=== PATIENT | female | born 1965 | race Caucasian/White ===

== ENCOUNTER → 2017-09-11 11:16 | Outpatient (CLI) | payer MEDICAID, SELFPAY ==
[2017-09-11 13:08] LABS: Hemoglobin A1C 5.7 % (4.5-6.2)
[2017-09-11 13:09] LABS: HCT 32.5 % (36.0-46.0); HGB 10.1 g/dL (12.0-15.5); Mean Corp. HGB Concentration 31.1 g/dL (32.0-36.0); Mean Corpuscular Hemoglobin 25.3 pg (27.0-33.0); Mean Corpuscular Volume 81.5 fL (80-95); Mean Platelet Volume 12.6 fL (8.0-11.0); Platelet Count 222 x1000/uL (130-400); RBC 3.99 m/cumm (4.00-5.20); RBC Distribution Width 15.7 % (11.7-14.6); White Blood Cell Count 4.38 k/cumm (4.4-10.8)
[2017-09-11 13:34] LABS: ALT 21 U/L (12-78); AST 17 U/L (15-37); Albumin 3.4 g/dL (3.4-5.0); Alkaline Phosphatase 116 U/L (46-116); Anion Gap 8.7 mmol/L (3-11); BUN 8 mg/dL (7-18); Bilirubin, Total 0.4 mg/dL (0.2-1.0); CO2 26.3 mmol/L (21.0-32.0); Chloride 107 mmol/L (98-107); Cholesterol 175 mg/dL (50-200); Glucose 77 mg/dL (70-100); HDL Cholesterol 58 mg/dL (40-60); LDL CHOLESTEROL 109 mg/dL (<100); Potassium 3.7 mmol/L (3.5-5.1); Sodium 142 mmol/L (136-145); TSH (W/Ref FT4) 1.38 uIU/mL (0.358-3.74); Total Protein 6.6 g/dL (6.4-8.2); Triglyceride 53 mg/dL (30-150)
[2017-09-13 06:40] LABS: Vitamin D 25 Total 19.5 ng/ml (30-100)
== END ==
PROVIDERS: PCP Family Medicine; Visit Provider Family Medicine
DX: E11.9 Type 2 diabetes mellitus without complications (principal); Z98.890 Other specified postprocedural states; E55.9 Vitamin D deficiency, unspecified
CPT/HCPCS: 36415; 80053; 80061; 82306; 83721; 85027; 83036; 84443

== ENCOUNTER → 2017-09-18 01:01 | Outpatient (CLI) | payer MEDICAID, SELFPAY ==
--- NOTE | 2017-09-18 11:17 | DI.REPORT_ITS ---
SYMPTOMS/DIAGNOSIS: SCREENING, Z12.31 MAMMOGRAM: Mammograms were interpreted according to the usual protocol including computer analysis with CAD system, tomosynthesis and C view imaging. Comparison is made with exams from 2010 through 2015. The breasts are composed of scattered fibroglandular densities. No suspicious masses or suspicious microcalcifications are seen. There has been no significant change. IMPRESSION: Category I B, negative mammogram. Routine screening is recommended. SA ASSESSMENT OF FINDINGS: Negative. Category 1. Patient will receive a letter notifying them of these results. BI-RADS category B. There are scattered areas of fibroglandular density.
== END ==
PROVIDERS: PCP Family Medicine; Visit Provider Family Medicine
DX: Z12.31 Encounter for screening mammogram for malignant neoplasm of breast (principal)
CPT/HCPCS: 77063; 77067

== ENCOUNTER 2018-09-30 01:13 | Outpatient (CLI) | payer MEDICAID, SELFPAY ==
--- NOTE | 2018-09-30 13:28 | DI.MAMMO_ITS ---
SYMPTOM/DIAGNOSIS: SCREENING Z12.31 BILATERAL SCREENING MAMMOGRAM: Mammograms were interpreted according to the usual protocol including computer analysis with CAD system, tomosynthesis and C view imaging. Comparison is made with exams from 2011 through 2018. The breasts are composed of scattered fibroglandular densities, breast density category B. No suspicious masses or suspicious microcalcifications are seen. There has been no significant change. IMPRESSION: Category 1, negative mammogram. Yearly screening mammography is recommended. Breast density category B. SA ASSESSMENT OF FINDINGS: Negative. Category 1. Patient will receive a letter notifying them of these results. BI-RADS category B. There are scattered areas of fibroglandular density.
== END 2018-09-30 01:33 ==
PROVIDERS: PCP Family Medicine; Visit Provider Family Medicine
DX: Z12.31 Encounter for screening mammogram for malignant neoplasm of breast (principal)
CPT/HCPCS: 77063; 77067

== ENCOUNTER 2022-01-05 01:54 | Outpatient (CLI) | payer BC, SELFPAY ==
--- NOTE | 2022-01-05 06:27 | ETT_ITS ---
APPROVED REPORT Exam: Exercise Treadmill Patient Location: Out-Patient Room/Bed: Stress Nurse: Lynn Bailey RN Ordering Provider:KHADRA MUNOZ, Contact Number: [phone] BMI: 36.48 Baseline Rhythm: Sinus Rhythm Indications: CHEST PAIN Medical History Medical History: Depression, Borderline DM, HLD, Gastric Bypass Cardiac Medications: Omeprazole, Allergies: Oxycodone, Lisinopril Cardiac Risk Factors: Hyperlipidemia, Obesity Previous Cardiac Procedures: None Pretest Chest Pain Characteristics: No chest pain Exercise History: Physically active Physical Disabilities: None Lung Sounds: Clear to auscultation Heart Sounds: Regular Stress Test Details Test: Exercise stress testing was performed using a Roddy protocol. Rest Stress HR Resting HR Supine: 65 bpm Max Heart Rate (APMHR): 166 bpm Resting HR Standin bpm Target HR (85% APMHR): 141 bpm Max HR Achieved: 152 bpm % of APMHR: 91 Recovery HR: 77 bpm HR response to stress: Normal HR response to stress BP Resting BP Supine: 115/72 mmHg Resting BP Standin/78 mmHg Max BP: 162/82 mmHg Recovery BP: 122/72 mmHg BP response to stress: Normal blood pressure response to stress. ECG Resting ECG: Sinus Rhythm Ectopy: None Comment: inverted T wave in lead III when standing Stress ECG: Sinus Tachycardia, inverted T wave in lead III ST Change: Horizontal/Upsloping ST depression Lead(s): II, aVF Stage: [address] Deviation: 0.5-1.0 mm Arrhythmia: occasional PAC Recovery ECG: Sinus Rhythm Recovery ST Change: No significant ST segment changes noted Recovery Arrhythmia: occasional PAC Clinical Reason for Termination: Fatigue Stress Symptoms: Dyspnea, Leg Fatigue Exercise duration: 7 min32 sec Highest Stage Reached: Stage 3: 3.4 mph at 14% grade. Exercise capacity: 8 METs Marie Treadmill Score: 7.2 Rate Pressure Product: [id number] Stress ECG Conclusion 1. Electrocardiogram was within normal limits 2. Patient exercised on the Roddy protocol and completed a workload of 8 METS stopping due to fatigue 3. Normal heart rate and blood pressure response to exercise. Patient achieved 91% of predicted hear t rate for age 4. There was no electrocardiographic evidence of myocardial ischemia 5. There were no significant dysrhythmias Marie Treadmill Score is 7.2 which is Low risk. Stress Test Summary STAGE Time (mins) Speed (mph) Grade (%) HR BP SpO2 SYMPTOMS METS Supine 65 115/72 Standing 65 122/78 1 3 1.7 10 107 140/78 4.5 2 6 2.5 12 125 148/90 7 1 min recovery 106 162/82 3 min recovery 78 130/72 6 min recovery 77 122/72
--- NOTE | 2022-01-05 13:02 | DI.RAD_ITS ---
Exam(s) XR KNEE LT 3V AP,LAT,BOYD EXAM: XR KNEE LT 3V AP,LAT,BOYD CLINICAL HISTORY: L knee pain,m25.562 TECHNIQUE: COMPARISON: CR KNEES BILAT AP STANDING LATS from 10/15/2012 FINDINGS: Three views were obtained. There is moderate narrowing of the cartilaginous joint space of the media l tibiofemoral joint. Otherwise cartilaginous joint spaces appear well maintained. There is mild me dial subluxation of the femur on the tibia. There are moderate marginal osteophytes of all 3 joints of the knee. IMPRESSION: DJD predominantly involving medial tibiofemoral joint RADIATION DOSE DELIVERED: Total DLP
== END 2022-01-05 02:14 ==
LOC: DI 01:56
PROVIDERS: PCP Family Medicine; Visit Provider Family Medicine
DX: R07.9 Chest pain, unspecified (principal); M25.562 Pain in left knee
CPT/HCPCS: 73562; 93017

== ENCOUNTER 2022-02-08 03:52 | Outpatient (CLI) | payer BC, SELFPAY ==
--- NOTE | 2022-02-08 13:44 | DI.US_ITS ---
APPROVED REPORT EXAM: Comprehensive 2D, Doppler, and color-flow Echocardiogram Patient Location: Out-Patient [facility]ater Worker: Sarahy Champion RDCS (AE) Indications: Chest pain, Murmur Other Information Study Quality: Adequate Conclusion Normal left ventricular wall thickness and chamber size. Estimated ejection fraction is 60%. Wall m otion is normal Normal right ventricular size and systolic function Both atria are normal in size There are no structural valvular abnormalities Trace mitral, aortic, and tricuspid regurgitation Dilated ascending aorta measuring 4.26 cm Estimated right ventricular systolic pressure is 27 mmHg Wall motion Left Ventricle The left ventricle is normal size. The left ventricular systolic function is normal. The left ventric ular ejection fraction is within the normal range. There is normal left ventricular wall thickness. T here is normal LV segmental wall motion. There is no ventricular septal defect visualized. LVEF is 60 %. Right Ventricle Right ventricle is grossly normal in size. Right ventricular systolic function is grossly normal. The RVSP is 26.9 mmHg. Atria The left atrium size is normal. The right atrium size is normal. The interatrial septum is intact wit h no evidence for an atrial septal defect. Aortic Valve The aortic valve is normal in structure. Aortic valve is trileaflet. There is no aortic valvular sten osis. Trace aortic regurgitation. Mitral Valve The mitral valve is normal in structure. No evidence of mitral valve stenosis. Trace mitral regurgita tion. Tricuspid Valve The tricuspid valve is normal in structure. There is no tricuspid valve stenosis. Trace tricuspid reg urgitation. Pulmonic Valve The pulmonary valve is normal in structure. There is no pulmonic valvular stenosis. There is no pulmo ferdinand valvular regurgitation. Great Vessels The aortic root is normal in size. The ascending aorta is moderately dilated. Aortic arch is normal in caliber. IVC is normal in size and collapses >50% with inspiration. Pericardium There is no pericardial effusion. 2D Dimensions IVSD d PLAX 0.92 cm F: 0.6-1.0 LV Vol A2C d MOD 102.7 mL LVPW d PLAX 0.93 cm F: 0.6 - 1.0 LV Vol A4C d MOD 118.1 mL LVID d PLAX 4.92 cm F: 3.8 - 5.2 LA vol/ BSA A2C s A-L 29.6 mL/m2 LVDs 3.35 cm F: 2.2 - 3.5 LA vol/ BSA A4C s A-L 25.6 mL/m2 Ao Root d 3.11 cm F: 2.7 - 3.3 LA Vol/ BSA Biplane s A-L 28.0 mL/m2 RA Area A4C 17.28 cm2 LA Area A4C s MOD 17.56 cm2 RA Vol/ BSA A4C s A-L 24.4 mL/m2 LA Area A2C s MOD 19.19 cm2 Ao Asc Diam d 4.24 cm F: 2.3 - 3.1 LV EF A4C MOD 60.0 % LV EF Teichholz 59.6 % LV EF A2C MOD 60.6 % LVEF (Vu's) 57.73 % F: 54 - 74 LV EF Biplane MOD 57.7 % LV Volume 83.58 mL F: 46 - 106 SV 63.42 mL LV Volume Index 43.53 mL/m2 F: 29 - 61 SV Index 33.09 mL/m2 LV Vol Biplane MOD 109.9 mL FS 31.70 % M-Mode TAPSE 2.61 cm (M/F) >1.7 LV Diastology MV E' medial 0.106 (>0.07 m/s) E/A Ratio 1.1 LV E/e MED 8.60 (<14) MV E Vmax 0.91 (0.4-1.3 m/s) MV E' lateral 0.112 (>0.1 m/s) MV A Vmax 0.85 (0.4-1.3 m/s) LV E/e LAT 8.10 (<14) MV E/A Ratio 1.04 MV E/E' medial 8.60 MV E/E' lateral 8.10 Aortic Valve LVOT Area 3.01 cm2 AoV Area Vmax 2.44 cm2 LVOT Vmax 1.33 m/s AoV Area/ BSA (Vmax) 1.27 cm2/m2 LVOT Mean Sree. 0.82 m/s AXEL Mean Sree. 2.13 cm2 LVOT Peak Grad 7.1 mmHg AXEL Mean Sree. Index 1.11 cm2/m2 LVOT Mean Grad 3.3 mmHg AR DT 1499 msec LVOT VTI 0.311 m AR PHT 435 msec LVOT Diam s 1.95 cm AoV Vmax 1.65 m/s Velocity Ratio 0.81 AoV Mean Sree. 1.16 m/s AoV Peak Grad 10.8 mmHg LVOT SV 93.66 mL AoV Mean Grad 6.0 mmHg AoV VTI 0.364 m AoV Area VTI 2.57 cm2 AoV Area/ BSA (VTI) 1.34 cm/m2 Mitral Valve MV DT 231 (160-240 msec) MV PHT 67 msec MV Area PHT 3.29 cm2 MV VTI 0.342 m MV Area VTI 2.74 (4.0-6.0 cm2) Pulmonary Valve PV Vmax 1.03 (0.5-1.5 m/s) RVOT Peak Gr. 2.95 mmHg PV Peak Grad 4.2 mmHg RVOT Mean Gr. 1.70 mmHg PV Mean Grad 2.1 mmHg RVOT VTI 0.201 m PV VTI 0.239 m RVOT Vmax 0.86 m/s Tricuspid Valve TR Peak Grad 23.9 mmHg TR Vmax 2.44 m/s RA Pressure 3.00 mmHg RVSP (TR) 26.9 mmHg
== END 2022-02-08 04:12 ==
LOC: DI 03:52
PROVIDERS: PCP Family Medicine; Visit Provider Family Medicine
DX: R07.9 Chest pain, unspecified (principal)
CPT/HCPCS: 93306

== ENCOUNTER 2022-03-21 11:00 | Day surgery (SDC) | payer BC, SELFPAY ==
[2022-03-21 11:26] VITALS: BP 147/82; PULSE 61; RESP 16; TEMP 36.3; O2SAT 100
--- NOTE | 2022-03-21 11:49 | W.PM.DSUDISC ---
Date of service: 03/21/22 Time of Service: 11:52 Discharge Plan Disposition Patient Disposition: Home Condition: Good Condition: Good Discharge Details Reason For Visit: Right DeQuervain's Disease Attending Provider: Cortes Hinton Primary Care Provider: Nancy Soto Home Meds and New Rx's Prescriptions: New acetaminophen 500 mg tablet 500 mg PO Q6H PRN (Reason: pain) Qty: 60 2RF hydrocodone-acetaminophen 5-325 mg tablet 1 tab PO Q6H PRN (Reason: severe pain) Qty: 4 0RF Rx Instructions: Take one tablet up to every 6 hours as needed for severe postoperative pain ibuprofen 600 mg tablet 600 mg PO TID PRN (Reason: pain) Qty: 60 0RF Continued multivitamin [Daily Vitamin] 1 EACH tablet 1 tab PO DAILY cyanocobalamin (vitamin B-12) 1,000 MCG tablet 1,000 mcg PO DAILY iron,carbonyl-vitamin C 1 EACH tablet 1 ea PO DAILY calcium citrate-vitamin D3 [Calcium Citrate +] 1 EACH tablet 1 ea PO DAILY biotin 1,000 MCG tablet,chewable 1,000 mcg PO DAILY Probiotic Digestive Care 1 EACH capsule 1 ea PO DAILY Qty: 1 estradiol [Estrace] 2 mg tablet 2 mg PO DAILY Qty: 90 7RF citalopram 20 mg tablet 30 mg PO DAILY Qty: 135 5RF Discharge Instructions Additional Instructions: Celestino's Discharge Instructions Activity: You should keep the hand elevated as much as possible for the first few days. You may use the other fingers as tolerated but avoid trying to do too much too soon. You may perform light activities with the splint in place. Dressing/Cast: Your splint should stay in place at all times. Do NOT get it wet. You may loosen the EMMANUELLE wrap if you feel it is too tight and then rewrap more loosely. Medications: - You should take Tylenol and Ibuprofen for baseline pain control. - You have Hydrocodone for breakthrough pain. - You may apply ice over the thumb. Follow-up: 7-10 days Referrals: Cortes Hinton MD [ [facility] STAFF PHYSICIAN] - Equipment/Supplies: Splint Activity:: Elevate Remove Dressings/Wound Care:: Do Not Remove Shower/Bathe:: Cover Diet:: As Tolerated Discharge Orders Discharge Orders: Discharge Order (Routine); Ordered 03/21/22 Ordered By: Melisa Villa
[2022-03-21] MEDS: Lactated Ringers 1,000 ML 80 ML IV (11:50)
--- NOTE | 2022-03-21 11:59 | ANES.PREOP_ITS ---
General Info Date of Service Date Performed: 03/21/22 Height: 5 ft 1 in Weight: 93.8 kg Body Mass Index (BMI): 39.0 Surgical Procedure: Operation Date: 03/21/22 13:25 Proposed Procedure Side Surgeon p Wrist Dequervains Release Right Cortes Hinton MD Meds Allergies and Home Medications Allergies Allergy/AdvReac Type Severity Reaction Status Date / Time oxycodone [Oxycodone] Allergy Unknown HIVES Unverified 03/21/22 11:37 lisinopril AdvReac Unknown COUGH Unverified 03/21/22 11:37 Home Medication Medication Instructions Recorded multivitamin (Daily Vitamin tablet) 1 tab PO DAILY 04/21/14 calcium citrate 315 mg-vitamin D3 1 ea PO DAILY 01/19/15 5 mcg (200 unit) tablet (Calcium Citrate +) cyanocobalamin (vitamin B-12) 1,000 mcg PO DAILY 01/19/15 1,000 mcg tablet iron,carbonyl 100 mg-vitamin C 250 1 ea PO DAILY 01/19/15 mg tablet biotin 1,000 mcg chewable tablet 1,000 mcg PO DAILY 07/20/15 Lactobacillus rhamnosus GG 20 1 ea PO DAILY ##1 08/29/16 billion cell capsule (Probiotic Digestive Care) estradiol 2 mg tablet (Estrace) 2 mg PO DAILY #90 tabs 11/04/19 citalopram 20 mg tablet 30 mg PO DAILY #135 tab-caps 01/02/22 acetaminophen 500 mg tablet 500 mg PO Q6H PRN pain #60 tabs 03/21/22 hydrocodone 5 mg-acetaminophen 325 1 tab PO Q6H PRN severe pain #4 03/21/22 mg tablet tabs ibuprofen 600 mg tablet 600 mg PO TID PRN pain #60 tabs 03/21/22 Current Visit Medications: Current Medications Generic Name Dose Route Start Last Admin Trade Name Freq PRN Reason Stop Dose Admin Acetaminophen 650 mg 03/21/22 11:48 Acetaminophen 325 Mg Tab PO Q4H PRN PRN Hydrocodone Bitart/Acetaminophen 0 tab 03/21/22 11:48 Hydrocodone 5/Acetaminophen 325 Tab PO Q3H PRN PRN Pain Ringer's Solution 1,000 mls @ 80 mls/hr 03/21/22 06:00 03/21/22 11:50 IV 04/19/22 23:59 80 mls/hr INFUSION ANDRIA Administration Cefazolin Sodium/Dextrose 2 gm in 50 mls @ 100 mls/hr 03/21/22 06:00 Ancef Duplex IVPB 03/21/22 16:00 PREOP [facility] IV Miscellaneous Supplies 1 each 03/21/22 06:00 Iv Access IV 04/19/22 23:59 DIRECTED ANDRIA Sodium Chloride 0 ml 03/21/22 06:00 Normal Saline Flush 10 Ml Syr IV 04/19/22 23:59 PRN PRN Sodium Chloride 0 ml 03/21/22 06:00 Normal Saline 10 Ml Vial IJ 04/19/22 23:59 DIRECTED PRN Sterile Water 0 ml 03/21/22 06:00 Water,Injection,Sterile 10 Ml Vial IJ 04/19/22 23:59 DIRECTED PRN PFSH Active Problems Active Problems: Problem Status Onset Code S/P gastric surgery 01/19/15 Z98.890 Lumbago M54.5 Laryngopharyngeal reflux 07/11/12 K21.9 Hyperlipidemia E78.5 Foot pain 09/17/12 M79.673 Skin eruption R21 Diabetes mellitus E11.9 Depression 04/13/15 F32.9 Colitis 02/04/14 K52.9 BMI 45.0-49.9, adult 04/17/14 Z68.42 Annual physical exam 04/13/15 Z00.00 Cough 07/11/12 R05 Carpal tunnel syndrome G56.00 Menopausal depression F32.89 Chest pain R07.9 De Quervain's disease (tenosynovitis) M65.4 Left knee pain M25.562 Ascending aorta dilatation I77.810 Knee osteoarthritis M17.9 Medical History Medical History Acute meniscal tear, medial (01/07/13) LEFT KNEE S/P SURGERY DR. PRADO Diabetes Dysfunctional uterine bleeding GERD (gastroesophageal reflux disease) Hyperlipidemia Knee pain (10/15/12) Lumbago Wart (06/01/14) Surgical History Surgical History Arthroplasty of knee (~01/2007) RIGHT KNEE Colonoscopy - MAC 02/04/14 Endometrial Biopsy NEG Gastric Bypass 12/2014 H/O: hysterectomy Hernia repair 09/06/17 History of arthroscopy of knee History of bilateral ligation of fallopian tubes History of meniscectomy of left knee History of surgical procedure Hx of cholecystectomy Ligation of fallopian tube Meniscectomy (01/07/13) LEFT KNEE Replacement of total knee joint (~01/2007) RIGHT Status post total knee replacement Tobacco Smoking/Tobacco Use Status: Never Passive smoking exposure: Yes Alcohol Alcohol Intake: current Alcohol intake frequency: holidays/special occasions only Substance Use Substance use: Never Substance use type: does not use Vital Signs and Lab Results Vital Signs Most Recent Vital Signs in EMR: Most Recent Vital Signs Temp Pulse Resp BP Pulse Ox 36.3 C L 61 16 147/82 H 100 03/21/22 11:26 03/21/22 11:26 03/21/22 11:26 03/21/22 11:26 03/21/22 11:26 Point of Care Results Point of Care Results: Finger Stick Blood Glucose 76 03/21/22 11:46 Lab Results Blood Type / Crossmatch: No Data to Display Complete Blood Count: No Data to Display Complete Metabolic Panel: No Data to Display Liver Function Panel: No Data to Display Coagulation Panel: No Data to Display Cardiac Panel: No Data to Display Arterial Blood Gas: No Data to Display Venous Blood Gas: No Data to Display Pancreas Panel: No Data to Display Thyroid Panel: No Data to Display Infectious Disease: No Data to Display Blood Cultures: No Data to Display Toxicology Panel: No Data to Display Panel: No Data to Display Imaging and Studies Imaging and Studies Study information below may be from another EMR and interpreted by another provider. Please see original notes in EMR for more complete details. Stress Test Summary: Stress ECG Conclusion 1. Electrocardiogram was within normal limits 2. Patient exercised on the Roddy protocol and completed a workload of 8 METS stopping due to fatigue 3. Normal heart rate and blood pressure response to exercise. Patient achieved 91% of predicted heart rate for age 4. There was no electrocardiographic evidence of myocardial ischemia 5. There were no significant dysrhythmias Marie Treadmill Score is 7.2 which is Low risk. 01/26 Echocardiogram Summary: Conclusion Normal left ventricular wall thickness and chamber size. Estimated ejection fraction is 60%. Wall motion is normal Normal right ventricular size and systolic function Both atria are normal in size There are no structural valvular abnormalities Trace mitral, aortic, and tricuspid regurgitation Dilated ascending aorta measuring 4.26 cm Estimated right ventricular systolic pressure is 27 mmHg Anesthesia Assessment and Plan Anesthesia History Personal History: No History of Anesthesia Complications Family History: No Family History of Anesthesia Complications Exercise Tolerance Exercise Tolerance: Metabolic Equivalents>4 Pertinent Negatives Pertinent Negatives: No Symptoms of GERD Cardiac & Pulmonary Exam Cardiac Exam: Normal S1/S2 Heart Sounds Pulmonary Exam: Clear Bilateral Breath Sounds Implantable Cardiac Device Does patient have a Pacemaker or an ICD?: No Airway Exam Known Difficult Airway: No Mallampati Class: 1 Mouth Opening: Normal (> 3cm) Thyromental Distance: Greater than 3 cm Neck Range of Motion: Full ROM Neck Circumference: Normal Teeth Condition: Normal Dentition ASA Classification ASA Score: ASA 2 Emergency Case?: No NPO Status NPO Status: NPO Clears >2 hours, Solids >8 hours Status Status: Not Relevant due to Medical History Anesthesia Plan Resuscitation Status: Full Code Anesthesia Technique: MAC Anesthesia Airway Planned: Natural Airway Monitors Used: Standard Monitors
[2022-03-21 12:06] VITALS: BMI 39.0
[2022-03-21] MEDS: ceFAZolin 2 GM/50 ML BAG IVPB (12:25)
[2022-03-21] MEDS: Bupivacaine 0.5% Pres-Free W/EPI 10 ML VIAL (12:47)
--- NOTE | 2022-03-21 13:00 | ROE_ITS ---
Date of service: 03/21/22 Time of Service: 13:00 Operative Note Operative Note DATE OF PROCEDURE: 03/21/22 PRE-OP DIAGNOSIS: Right Dequervain's Tenosynovitis POST-OP DIAGNOSIS: same PROCEDURE: Right First Extensor Compartment Release SURGEON: Cortes Hinton ANESTHESIA TYPE: General:No Airway Refer to Anesthesia Record ESTIMATED BLOOD LOSS: 0 PATHOLOGY: none sent TOURNIQUET TIME: 0 COMPLICATIONS: None Patient was transported to: same day Patient's condition: stable Indications: Korin is a 56 year old female who has had symptoms of Dequervain's tenosynovitis. Nonoperative treatment options had been trialed. Given their failure, I offered operative intervention. I reviewed the technical details of a first extensor compartment release. I reviewed the risk of the procedure to include bleeding, infection, pain, stiffness, tendon instability, damage to the superficial radial nerve, and complete release. Despite these risks, the patient elected to proceed. Findings: There was a tightened first excessive compartment. No subcompartments were seen encasing the EPB tendon. Procedure Description: Korin was greeted in the preoperative holding area. Name and surgical site were confirmed. The history and physical was completed. The consent was reviewed the patient and signed. She was taken back to the operating room. The patient was placed in the supine position and monitored anesthesia care was initiated. The right was then prepped with ChloraPrep and draped in a standard fashion after a nonsterile tourniquet was placed high up onto the arm. Prophylactic antibiotics in the form of cefazolin were administered. A timeout was performed for safe surgery. The surgical site was drawn on the skin. The planned surgical field was anesthetized with 0.25% bupivacaine with epinephrine. A 2 cm incision was made longitudinally over the radial styloid. The skin was incised only. The deep tissue subcutaneous fat was dissected with a tenotomy scissors trying to protect bridge of the superficial radial nerve. Any branches that were identified were retracted out of the way. The first compartment extensor tendons were then identified. The distal aspect of the first compartment was noted and were released. This release was performed more on the dorsal side to prevent tendon subluxation. The entirety of the first extensor compartment was then released. The slips of the abductor pollicis longus tendon were inspected. They removed to confirm the appropriate motion of the thumb. The extensor pollicis brevis tendon was then identified. THere were no subcompartments, EPB and APL slips we re identified and confirmed. Traction on the tendon was also used to confirm appropriate extension of the thumb confirming the release of the appropriate tendon. The dorsal radial surface of the radius was once again inspected to make sure there is no other sub-compartments or other restrictions to tendon motion. There was significant synovitis seen around the tendons. This was resected sharply. The wound was then thoroughly irrigated. The deep tissue was closed with a 3-0 Vicryl. The skin was closed with a running subjective 4-0 Monocryl. Skin glue was applied. The tourniquet is released without significant bleeding. The hand was dressed with 4 x 4's, Kerlex and EMMANUELLE wrap into a soft thumb spica splint. All counts were correct. Patient was transferred back to same day surgery area in stable condition.
[2022-03-21 13:04] VITALS: BP 108/71; PULSE 63; RESP 16; TEMP 36.2; O2SAT 100
[2022-03-21 13:35] VITALS: BP 131/80; PULSE 60; RESP 18; TEMP 36.2; O2SAT 99
--- NOTE | 2022-03-21 14:37 | W.ANESPOSTOP ---
Postoperative Evaluation Date, Time and Location Date Performed: 03/21/22 Time Performed: 13:40 Patient Location: Day Surgery Unit Vital Signs Most Recent Imported Vital Signs: Most Recent Vital Signs Temp Pulse Resp BP Pulse Ox 36.2 C L 60 18 131/80 99 03/21/22 13:35 03/21/22 13:35 03/21/22 13:35 03/21/22 13:35 03/21/22 13:35 Pain Score Most Recent Pain Score: Most Recent Pain Score Pain Level 0 03/21/22 13:35 Assessment Mental Status: Awake (Alert & Oriented to Patient Baseline) Airway and Respiratory Function: Patent airway with normal (patient baseline) respiratory exam Cardiovascular Function: Hemodynamically Stable Hydration Status: Adequately Hydrated Nausea & Vomiting: No Nausea or Vomiting Pain: Pt. Denies Any Pain Peripheral Nerve Block: Patient did not receive a nerve block
== END 2022-03-21 13:55 | disposition home or self-care (01) ==
PROVIDERS: PCP Family Medicine; Visit Provider Student in an Organized Health Care Education/Training Program
PROC: (CPT 25000; principal; 2022-03-21 13:15)
DX: M65.4 Radial styloid tenosynovitis [de Quervain] (principal); E11.9 Type 2 diabetes mellitus without complications
CPT/HCPCS: 25000; J0690; J2704

== ENCOUNTER 2022-04-28 02:10 | Outpatient (CLI) | payer BC, SELFPAY ==
[2022-04-28 11:19] LABS: HCT 39.9 % (36.0-46.0); HGB 12.6 g/dL (11.2-15.7); MCH 28.4 pg (27.0-33.0); MCHC 31.6 % (32.0-36.0); MCV 90 fL (80-95); MPV 11.4 fL (8.0-11.0); Platelet Count 241 10^3/uL (130-400); RBC 4.44 10^6/uL (3.93-5.22); RDW 12.9 % (11.7-14.6); RDW-SD 42.6 fL; WBC 6.63 10^3/uL (4.4-10.8)
[2022-04-28 11:54] LABS: Anion Gap 7.1 mmol/L (3-11); BUN 12 mg/dL (7-18); CO2 30.9 mmol/L (21.0-32.0); CREATININE 0.7 mg/dL (0.55-1.02); Calcium 9.1 mg/dL (8.5-10.1); Chloride 108 mmol/L (98-107); Estimated GFR 102.71 (mL/min/1.73m2); Glucose 85 mg/dL (74-106); Potassium 4.3 mmol/L (3.5-5.1); Sodium 146 mmol/L (136-145)
== END 2022-04-28 02:11 | disposition home or self-care (01) ==
LOC: LBO 02:11
PROVIDERS: PCP Family Medicine; Visit Provider Student in an Organized Health Care Education/Training Program
DX: M25.562 Pain in left knee (principal); M17.12 Unilateral primary osteoarthritis, left knee; Z01.818 Encounter for other preprocedural examination; Z01.812 Encounter for preprocedural laboratory examination
CPT/HCPCS: 36415; 80048; 85027

== ENCOUNTER 2022-04-28 10:43 | Outpatient (CLI) | payer BC, SELFPAY ==
--- NOTE | 2022-04-28 10:00 | DI.RAD_ITS ---
Exam(s) XR KNEE LT 1V XR STANDING ALIGNMENT EXAM: XR STANDING ALIGNMENT and XR knee LT 1 V CLINICAL HISTORY: left knee DJD. TECHNIQUE: 2D digital imaging was performed. Five images were obtained. COMPARISON: CR XR KNEE LT 3V AP,LAT,BOYD from 01/05/2022 FINDINGS: BONES: The hips are well maintained. There are postsurgical changes of a right total knee replacemen t. The orthopedic hardware appears in good position. In the left knee, there is joint space narrowi ng in the medial femoral tibial joint. Tricompartment periarticular spurring is present. No joint e ffusion is seen. The ankles are well maintained.There is no significant leg length discrepancy. SOFT TISSUE: Normal. IMPRESSION: Osteoarthritis of the left knee. DATA REPOSITORY: RADIATION DOSE DELIVERED:
== END 2022-04-28 10:44 | disposition home or self-care (01) ==
LOC: DIORS 10:44
PROVIDERS: PCP Family Medicine; Referring Provider Family Medicine; Visit Provider Physician Assistant
DX: M25.562 Pain in left knee (principal); M17.12 Unilateral primary osteoarthritis, left knee; Z96.651 Presence of right artificial knee joint
CPT/HCPCS: 73560; 77073

== ENCOUNTER 2022-05-10 08:32 | Day surgery (SDC) | payer BC, SELFPAY ==
[2022-05-10] VITALS (9 sets, daily range): BP systolic 100–131; BP diastolic 58–91; PULSE 58–69; RESP 16–18; TEMP 36–36.7; O2SAT 96–100; BMI 39.1
--- NOTE | 2022-05-10 07:46 | PDOC.DSDIS_ITS ---
Date of service: 05/10/22 Time of Service: 07:46 Discharge Plan Disposition Patient Disposition: Home Condition: Good Discharge Details Reason For Visit: L TKR Attending Provider: Cortes Hinton Primary Care Provider: Nancy Soto Home Meds and New Rx's Prescriptions: New acetaminophen 500 mg tablet 1,000 mg PO TID Qty: 90 3RF celecoxib 200 mg capsule 200 mg PO BID Qty: 60 0RF aspirin 81 mg tablet,delayed release (DR/EC) 81 mg PO BID Qty: 60 0RF hydromorphone 2 mg tablet 2 mg PO Q4H PRN (Reason: pain) Qty: 20 0RF pantoprazole 40 mg tablet,delayed release (DR/EC) 40 mg PO DAILY Qty: 30 0RF dexamethasone 4 mg tablet 4 mg PO DAILY Qty: 2 0RF gabapentin 300 mg capsule 300 mg PO QHS Qty: 14 0RF Continued multivitamin [Daily Vitamin] 1 EACH tablet 1 tab PO DAILY cyanocobalamin (vitamin B-12) 1,000 MCG tablet 1,000 mcg PO DAILY iron,carbonyl-vitamin C 1 EACH tablet 1 ea PO DAILY calcium citrate-vitamin D3 [Calcium Citrate +] 1 EACH tablet 1 ea PO DAILY biotin 1,000 MCG tablet,chewable 1,000 mcg PO DAILY Probiotic Digestive Care 1 EACH capsule 1 ea PO DAILY Qty: 1 estradiol [Estrace] 2 mg tablet 2 mg PO DAILY Qty: 90 7RF citalopram 20 mg tablet 30 mg PO DAILY Qty: 135 5RF Discontinued acetaminophen 500 mg tablet 500 mg PO Q6H PRN (Reason: pain) Qty: 60 2RF ibuprofen 600 mg tablet 600 mg PO TID PRN (Reason: pain) Qty: 60 0RF Discharge Instructions Additional Instructions: Total Knee Discharge Instructions Activity: The most important activity is to walk and to work on gentle motion (both flexion and extension). You should try to take short walks a few times a day. It is important that when resting you work on keeping the knee straight. Avoid putting a pillow behind the knee as this will encourage flexion. Work on range of motion exercises as provided by Physical Therapy. - Start outpatient physical therapy within 2 weeks. - You should wear the NICOLE hose on both legs for 2 weeks. You may remove these at night. You may also use any compression sock in place of the NICOLE hose. - Utilize [employer] to review exercises, see videos on exercises and obtain basic information pertaining to your surgery and your recovery. Dressing: Remove the Tyron wrap by 2 days after your surgery and put on the NICOLE stocking given to you from the hospital. Keep the surgical dressing (underneath the TYRON wrap) in place for at least one week. After the first week it may be removed and replaced with light gauze and tape or nothing. The wound and dressing may get wet after 3 days but avoid soaking the dressing or otherwise it will need to be changed. Many people prefer covering the dressing with cling wrap (saran wrap) to minimize it from getting soaked. If it gets wet, just pat dry. If it starts to peel off then it will need to be changed. Medications: - You should take Tylenol and anti-inflammatory Celebrex as your primary pain control medications. If the Celebrex is too expensive or not covered, please call the office for another alternative (Advil/Ibuprofen or Naproxen/Aleve) - You have been prescribed a stronger pain medication Hydromorphone for breakthrough pain, take as needed as prescribed. - You have also been prescribed a stomach acid reduction agent Pantoprozole to help reduce stomach acid and reflux. - You have been prescribed Gabapentin to take at night for restlessness and nerve pain. - You will be taking Aspirin 81mg twice a day for DVT prevention unless instructed otherwise. - You have also been prescribed Decadron to take to control post-operative nausea and pain. You will start this tomorrow. - If you have constipation you should take Colace or Miralax (both [id number]). It takes most people 3-4 days to have a bowel movement. Follow-up: 2 weeks If you have any acute concerns or questions, please do not hesitate to contact the office at [phone]. You may contact Dr. Hinton with any questions after hours through the hospital at [phone] or on his cell phone at [phone]. Stand Alone Forms: Anesthesia Discharge Inst., Anes.Nerve Block Instructions, Jessika Saavedra (DSU) Referrals: Cortes Hinton MD [ [facility] STAFF PHYSICIAN] - Equipment/Supplies: Walker Activity:: Activity as Tolerated Remove Dressings/Wound Care:: Do Not Remove Shower/Bathe:: 72 hours and Cover Diet:: As Tolerated Discharge Orders Discharge Orders: Discharge Order (Routine); Ordered 05/10/22 Ordered By: Cortes Hinton DS: Diagnosis Discharge Diagnosis (1) Knee osteoarthritis: Status: Chronic
--- NOTE | 2022-05-10 08:27 | W.ANESPRE ---
General Info Date of Service Date Performed: 05/10/22 Height: 5 ft 1 in Weight: 93.894 kg Body Mass Index (BMI): 39.1 Surgical Procedure: Operation Date: 05/10/22 10:40 Proposed Procedure Side Surgeon p Knee Total Arthroplasty, Cementless CR Left Cortes Hinton MD Meds Allergies and Home Medications Allergies Allergy/AdvReac Type Severity Reaction Status Date / Time oxycodone [Oxycodone] Allergy Unknown HIVES Unverified 05/09/22 12:39 lisinopril AdvReac Unknown COUGH Unverified 05/09/22 12:39 Home Medication Medication Instructions Recorded multivitamin (Daily Vitamin tablet) 1 tab PO DAILY 04/21/14 calcium citrate 315 mg-vitamin D3 1 ea PO DAILY 01/19/15 5 mcg (200 unit) tablet (Calcium Citrate +) cyanocobalamin (vitamin B-12) 1,000 mcg PO DAILY 01/19/15 1,000 mcg tablet iron,carbonyl 100 mg-vitamin C 250 1 ea PO DAILY 01/19/15 mg tablet biotin 1,000 mcg chewable tablet 1,000 mcg PO DAILY 07/20/15 Lactobacillus rhamnosus GG 20 1 ea PO DAILY ##1 08/29/16 billion cell capsule (Probiotic Digestive Care) estradiol 2 mg tablet (Estrace) 2 mg PO DAILY #90 tabs 11/04/19 citalopram 20 mg tablet 30 mg PO DAILY #135 tab-caps 01/02/22 acetaminophen 500 mg tablet 1,000 mg PO TID #90 tabs 05/10/22 aspirin 81 mg tablet,delayed 81 mg PO BID #60 tabs 05/10/22 release celecoxib 200 mg capsule 200 mg PO BID #60 caps 05/10/22 dexamethasone 4 mg tablet 4 mg PO DAILY #2 tabs 05/10/22 gabapentin 300 mg capsule 300 mg PO QHS #14 caps 05/10/22 hydromorphone 2 mg tablet 2 mg PO Q4H PRN pain #20 tabs 05/10/22 pantoprazole 40 mg tablet,delayed 40 mg PO DAILY #30 tabs 05/10/22 release Current Visit Medications: Current Medications Generic Name Dose Route Start Last Admin Trade Name Freq PRN Reason Stop Dose Admin Acetaminophen 1,000 mg 05/10/22 06:00 Acetaminophen 500 Mg Tab PO 05/10/22 16:00 PREOP [place] Acetaminophen 1,000 mg 05/10/22 14:00 Acetaminophen 500 Mg Tab PO TID [facility] Aspirin 81 mg 05/10/22 20:00 Aspirin E.C. 81 Mg Tabec PO BID [facility] Celecoxib 400 mg 05/10/22 06:00 Celecoxib 200 Mg Cap PO 05/10/22 16:00 PREOP [facility] Celecoxib 200 mg 05/10/22 20:00 Celecoxib 200 Mg Cap PO BID [facility] Dexamethasone 4 mg 05/11/22 08:30 Dexamethasone 4 Mg Tab PO 05/12/22 08:31 DAILY [facility] Docusate Sodium 100 mg 05/10/22 07:43 Docusate Sodium 100 Mg Cap PO BID PRN PRN Constipation Gabapentin 300 mg 05/10/22 06:00 Gabapentin 300 Mg Cap PO 05/10/22 16:00 PREOP [facility] Gabapentin 300 mg 05/10/22 22:00 Gabapentin 300 Mg Cap PO HS [facility] Hydromorphone HCl 0 mg 05/10/22 07:43 Hydromorphone 2 Mg Tab PO Q3H PRN PRN Pain Tranexamic Acid 1,000 mg/ 60 mls @ 360 mls/hr 05/10/22 06:00 Sodium Chloride IVPB 05/10/22 16:00 PREOP [facility] Ringer's Solution 1,000 mls @ 80 mls/hr 05/10/22 06:00 IV 06/08/22 23:59 INFUSION [facility] Cefazolin Sodium/Dextrose 2 gm in 50 mls @ 100 mls/hr 05/10/22 06:00 Ancef Duplex IVPB 06/08/22 23:59 PREOP [facility] Cefazolin Sodium/Dextrose 1 gm in 50 mls @ 100 mls/hr 05/10/22 08:00 Ancef Duplex IVPB 05/11/22 00:29 Q8H [facility] IV Miscellaneous Supplies 1 each 05/10/22 06:00 Iv Access IV 06/08/22 23:59 DIRECTED [facility] Pantoprazole Sodium 40 mg 05/11/22 07:30 Pantoprazole 40 Mg Tabcr PO DAILY@0730 [facility] Polyethylene Glycol 17 gm 05/10/22 07:43 Polyethylene Glycol 3350 17 Gm Packet PO BID PRN PRN Constipation Sodium Chloride 0 ml 05/10/22 06:00 Normal Saline Flush 10 Ml Syr IV 06/08/22 23:59 PRN PRN Sodium Chloride 0 ml 05/10/22 06:00 Normal Saline 10 Ml Vial IJ 06/08/22 23:59 DIRECTED PRN Sterile Water 0 ml 05/10/22 06:00 Water,Injection,Sterile 10 Ml Vial IJ 06/08/22 23:59 DIRECTED PRN PFSH Active Problems Active Problems: Problem Status Onset Code S/P gastric surgery 01/19/15 Z98.890 Lumbago M54.5 Laryngopharyngeal reflux 07/11/12 K21.9 Hyperlipidemia E78.5 Foot pain 09/17/12 M79.673 Skin eruption R21 Diabetes mellitus E11.9 Depression 04/13/15 F32.9 Colitis 02/04/14 K52.9 BMI 45.0-49.9, adult 04/17/14 Z68.42 Annual physical exam 04/13/15 Z00.00 Cough 07/11/12 R05 Carpal tunnel syndrome G56.00 Menopausal depression F32.89 Chest pain R07.9 Left knee pain M25.562 Ascending aorta dilatation I77.810 Knee osteoarthritis M17.9 Medical History Medical History Diabetes Dysfunctional uterine bleeding GERD (gastroesophageal reflux disease) Reports no symptoms recently Hyperlipidemia Knee pain (10/15/12) Lumbago Wart (06/01/14) Surgical History Surgical History Acute meniscal tear, medial (01/07/13) LEFT KNEE S/P SURGERY DR. PRADO Arthroplasty of knee (~01/2007) RIGHT KNEE Colonoscopy - MAC 02/04/14 De Quervain's disease (tenosynovitis) s/p right de Quervain's release DOS: 03/21/22 Endometrial Biopsy NEG Gastric Bypass 12/2014 H/O: hysterectomy Hernia repair 09/06/17 History of arthroscopy of knee Right knee prior to TKA History of bilateral ligation of fallopian tubes Hx of cholecystectomy Meniscectomy (01/07/13) LEFT KNEE Replacement of total knee joint (~01/2007) RIGHT Tobacco Smoking/Tobacco Use Status: Never Passive smoking exposure: Yes Alcohol Alcohol Intake: current Alcohol intake frequency: holidays/special occasions only Substance Use Substance use: Never Substance use type: does not use Vital Signs and Lab Results Lab Results Blood Type / Crossmatch: No Data to Display Complete Blood Count: White Blood Count 6.63 10^3/uL (4.4-10.8) 04/28/22 11:06 Red Blood Count 4.44 10^6/uL (3.93-5.22) 04/28/22 11:06 Hemoglobin 12.6 g/dL (11.2-15.7) 04/28/22 11:06 Hematocrit 39.9 % (36.0-46.0) 04/28/22 11:06 Platelet Count 241 10^3/uL (130-400) 04/28/22 11:06 Complete Metabolic Panel: Sodium 146 mmol/L (136-145) H 04/28/22 11:06 Potassium 4.3 mmol/L (3.5-5.1) 04/28/22 11:06 Chloride 108 mmol/L (98-107) H 04/28/22 11:06 Carbon Dioxide 30.9 mmol/L (21.0-32.0) 04/28/22 11:06 BUN 12 mg/dL (7-18) 04/28/22 11:06 Creatinine 0.7 mg/dL (0.55-1.02) 04/28/22 11:06 Est GFR (CKD-EPI 2020) 102.71 (mL/min/1.73m2) 04/28/22 11:06 Calcium 9.1 mg/dL (8.5-10.1) 04/28/22 11:06 Glucose 85 mg/dL (74-106) 04/28/22 11:06 Liver Function Panel: No Data to Display Coagulation Panel: No Data to Display Cardiac Panel: No Data to Display Arterial Blood Gas: No Data to Display Venous Blood Gas: No Data to Display Pancreas Panel: No Data to Display Thyroid Panel: No Data to Display Infectious Disease: No Data to Display Blood Cultures: No Data to Display Toxicology Panel: No Data to Display Panel: No Data to Display Imaging and Studies Imaging and Studies Study information below may be from another EMR and interpreted by another provider. Please see original notes in EMR for more complete details. Stress Test Summary: Stress ECG Conclusion 1. Electrocardiogram was within normal limits 2. Patient exercised on the Roddy protocol and completed a workload of 8 METS stopping due to fatigue 3. Normal heart rate and blood pressure response to exercise. Patient achieved 91% of predicted heart rate for age 4. There was no electrocardiographic evidence of myocardial ischemia 5. There were no significant dysrhythmias Marie Treadmill Score is 7.2 which is Low risk. 01/26 Echocardiogram Summary: Conclusion Normal left ventricular wall thickness and chamber size. Estimated ejection fraction is 60%. Wall motion is normal Normal right ventricular size and systolic function Both atria are normal in size There are no structural valvular abnormalities Trace mitral, aortic, and tricuspid regurgitation Dilated ascending aorta measuring 4.26 cm Estimated right ventricular systolic pressure is 27 mmHg Anesthesia Assessment and Plan Anesthesia History Personal History: No History of Anesthesia Complications Family History: No Family History of Anesthesia Complications Exercise Tolerance Exercise Tolerance: Metabolic Equivalents>4 Pertinent Negatives Pertinent Negatives: No Symptoms of GERD, No Major Cardiovascular Symptoms or Complaints, No Major Pulmonary Symptoms or Complaints and No History of CVA/TIA Cardiac & Pulmonary Exam Cardiac Exam: Normal S1/S2 Heart Sounds Pulmonary Exam: Clear Bilateral Breath Sounds Implantable Cardiac Device Does patient have a Pacemaker or an ICD?: No Airway Exam Known Difficult Airway: No Mallampati Class: 1 Mouth Opening: Normal (> 3cm) Thyromental Distance: Greater than 3 cm Neck Range of Motion: Full ROM Neck Circumference: Normal Teeth Condition: Normal Dentition ASA Classification ASA Score: ASA 2 Emergency Case?: No NPO Status NPO Status: NPO Clears >2 hours, Solids >8 hours Status Status: History of Hysterectomy Anesthesia Plan Resuscitation Status: Full Code Anesthesia Technique: Spinal Anesthesia Airway Planned: Natural Airway Pain Management: Surgeon and patient request nerve block Monitors Used: Standard Monitors
[2022-05-10] MEDS: Celecoxib 200 MG CAP 400 MG PO (09:27)
[2022-05-10] MEDS: Gabapentin 300 MG CAP PO (09:27)
[2022-05-10] MEDS: Acetaminophen 500 MG TAB 1000 MG PO (09:27)
[2022-05-10] MEDS: Lactated Ringers 1,000 ML 80 ML IV (09:35)
[2022-05-10] MEDS: ceFAZolin 2 GM/50 ML BAG IVPB (10:23)
--- NOTE | 2022-05-10 10:52 | W.ANESNERVE ---
Nerve Block Single Injection Procedure Date and Time Date Performed: 05/10/22 Procedure Start: 10:07 Location Where Procedure Performed Procedure Location: Day Surgery Unit Reason Performed: Postoperative Analgesia Requesting Provider: Cortes Hinton Timeout Performed Timeout Performed: Yes Monitoring Used ECG, Blood Pressure and SpO2 Sterility Sterility: Hand Hygiene, Surgical Cap, Surgical Mask, Sterile Gloves and Chlorhexidine Sedation Given During Procedure Sedation Given (Indicate Dose Given): Versed IV Dose:: 2 mg Patient Mental Status Patient Mental Status: Sedate with meaningful communication Nerve Block 1st Nerve Block: Laterality: Left Block Type: Adductor Canal Ultrasound Image Saved?: Yes Needle / Catheter Used: 100mm SonoPlex II Local Anesthetic Bolus (Indicate Dose Given): Lidocaine used for local infiltration of skin, Injected in 3-5ml increments after negative blood aspiration and Bupivacaine 0.25% Dose:: 20 ml Additives (Indicate Dose Given): None Ultrasound: Sterile probe cover and gel used Nerve Stimulator: Not Used Paresthesia: None Procedure Tolerated: No Complications and Patient tolerated well Procedure Outcome: Successful Performed By: Shubham Hinson
[2022-05-10] MEDS: fentaNYL 100 MCG/2 ML VIAL IVP (12:35)
--- NOTE | 2022-05-10 14:46 | IN_ITS ---
Date of service: 05/10/22 Time of Service: 14:20 PT Notes Visit Reasons: L TKR Physical Therapy Day Surgery Initial Evaluation Date: 05/10/2022 Referring Doctor: GISSELLE Mcdaniel PT Orders: PT CONSULT: Eval/Treat Precautions: WBAT on the L LE with AD. Patient Profile/Admitting Diagnosis: Korin is a 56-year-old female patient with degenerative joint disease of the L knee and is S/P L total knee arthroplasty on postoperative day 0. PMHX: Medical History?(Updated 04/28/22 @ 10:29 by Melisa Villa) Diabetes Dysfunctional uterine bleeding GERD (gastroesophageal reflux disease) Reports no symptoms recently Hyperlipidemia Knee pain (10/15/12) Lumbago Wart (06/01/14) Surgical History?(Updated 04/28/22 @ 10:29 by Melisa Villa) Acute meniscal tear, medial (01/07/13) LEFT KNEE S/P SURGERY DR. PRADO Arthroplasty of knee (~01/2007) RIGHT KNEE Colonoscopy - MAC 02/04/14 De Quervain's disease (tenosynovitis) s/p right de Quervain's release DOS: 03/21/22Endometrial Biopsy NEG Gastric Bypass 12/2014H/O: hysterectomy Hernia repair 09/06/17 History of arthroscopy of knee Right knee prior to TKA History of bilateral ligation of fallopian tubes Hx of cholecystectomy Meniscectomy (01/07/13) LEFT KNEE Replacement of total knee joint (~01/2007) RIGHT Social History/Home Situation: Lives with in a praivate home with 1-2 steps to enter. Independent with all aspects of ADLs however safe and efficient performance have been affected by chroninc L knee pain. 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 Equipment Owned/DME: [employer] Subjective: Denies headache, chest pain, and lightheadedness throughout. Pain report at 2/10 in the L knee. Feels that L front thigh muscle is not completely awake yet with mild buckling reported x 2. Objective: General Observation: Supine in bed. EMMANUELLE wrap to L LE. Cryocuff to L knee. Mental Status: Alert and oriented x 4 Pain: 1-2/10 in hte L knee ROM: Right Lower Extremity: Hip flexion WFL. Hip abduction WFL. Knee flexion WFL. Ankle dorsiflexion WFL. Ankle plantarflexion WFL. Left Lower Extremity: Hip flexion WFL. Hip abduction WFL. Knee flexion 0-100 degrees. Ankle dorsiflexion WFL. Ankle plantarflexion WFL. Strength: Right Lower Extremity: Hip flexors 5/5. Hip abductors 5/5. Knee flexors 5/5. Knee extensors 5/5. Ankle dorsiflexors 5/5. Ankle plantarflexors 5/5. Left Lower Extremity:Hip flexors 5/5. Hip abductors 5/5. Knee flexors 3-/5. Knee extensors 4-/5. Ankle dorsiflexors 5/5. Ankle plantarflexors 5/5. Sensation: Intact as to pain and pressure in B LE; reports mild persistent numbness in the L quad area Bed Mobility/Transfers: Supine to sit supervision Sit to stand supervision Stand to sit supervision Bed to chair supervision Gait: 150 feet using FWW with step through gait pattern and stand by assist. Feels that L front thigh muscle is not completely awake yet with mild buckling observed x 2 but no LOB. No SOB. Balance: Static Sitting: Normal Dynamic Sitting: Normal Static Standing: Fair Dynamic Standing: Fair Special Tests: Mobility Limitations Standardized Measure [facility] AM-PAC 6 clicks Basic Mobility Inpatient Short Form: Raw Score: 24 CMS Score: 0% deficit Informed Consent/Education: Patient instructed in purpose of PT consult. Packet containing TKA exercise protocol has been given to patient. Education and training on initial set of exercises that can be done at home have been completed with patient. THERA EX: Supine quads sets x 5 Supine heel slides x 5 Supine ankle pumps x 10 Supine small range SLR x 5 Seated marches x 5 Assessment: Patient requires the use of a front-wheeled walker to maximize independence and reduce fall risk. Patient presents with clinical signs and symptoms consistent with current/admitting diagnoses that have resulted to mobility limitations, gait instability, generalized weakness, and impairment of motor control as demonstrated by the following impairment level findings: 1. Decreased strength to left knee major muscle groups 2. Impaired standing balance 3. Limitation of joint range of motion in left knee Impairments are contributing to the following functional limitations: 1. Inability to safely ambulate without assistive device 2. Increase completion time for mobility ADL performance 3. Increased fall risk Patient is assessed as a [id number] moderate complexity based on the following: History: 56-year-old female with impairment level findings, functional limitations, and past medical history as indicated above Examination: Demonstrable impairment in strength, balance, and mobility level with underlying impairments and functional limitations as documented above Presentation: Evolving Decision Makin moderate complexity Goals: N/A. PT evaluation and 1-2 treatment sessions only for functional mobility ganesh ramsey using recommended AD and for HEP instruction. Plan of Care/Treatment Plan: N/A. PT evaluation and 1-2 treatment session only for functional mobility training using recommended AD and for HEP instruction. DISCHARGE RECOMMENDATIONS: Home when medically cleared by orthopedic surgeon. Recommend outpatient PT services in order to optimize functional mobility outcomes and facilitate return to independent community ambulation and to full vocational activities without an assistive device. TREATMENT CODE/TIME: [id number] x 25 minutes beginning at 14:20 PM Thank you for the opportunity to participate in the care of this patient. Carina Aquino PT, DPT, CLT [facility] [place], [place]
--- NOTE | 2022-05-10 15:43 | W.ANESPOSTOP ---
Postoperative Evaluation Date, Time and Location Date Performed: 05/10/22 Time Performed: 15:44 Patient Location: Day Surgery Unit Vital Signs Most Recent Imported Vital Signs: Most Recent Vital Signs Temp Pulse Resp BP Pulse Ox 36.0 C L 68 16 116/79 99 05/10/22 14:55 05/10/22 14:55 05/10/22 14:55 05/10/22 14:55 05/10/22 14:55 Pain Score Most Recent Pain Score: Most Recent Pain Score Pain Level 2 05/10/22 14:55 Assessment Mental Status: Awake (Alert & Oriented to Patient Baseline) Airway and Respiratory Function: Patent airway with normal (patient baseline) respiratory exam Cardiovascular Function: Hemodynamically Stable Hydration Status: Adequately Hydrated Nausea & Vomiting: No Nausea or Vomiting Pain: Pain is tolerable per patient Peripheral Nerve Block: Regional nerve block not resolved at time of post operative discharge Postoperative Comments:: Patient seen earlier today, doing well. Denied questions, spinal receding appropriately at that time. Noted to RN that Patient was appropriate for discharge so long as full return CMS with instructions to contact anesthesia if any concerns.
--- NOTE | 2022-05-10 16:53 | W.PM.OP ---
Date of service: 05/10/22 Time of Service: 11:30 Operative Note Operative Note DATE OF PROCEDURE: 05/10/22 PRE-OP DIAGNOSIS: Left Knee Osteoarthritis POST-OP DIAGNOSIS: same PROCEDURE: Left Total Knee Replacement SURGEON: Cortes Hinton [employer]CHNICIAN: Violet Aguiar ANESTHESIA TYPE: Spinal Refer to Anesthesia Record ESTIMATED BLOOD LOSS: 100 PATHOLOGY: none sent TOURNIQUET TIME: 0 COMPLICATIONS: None Patient was transported to: PACU Patient's condition: stable Implants: 1. Depuy Attune Cementless Cruciate Retaining Femoral Component, Size 5 2. Depuy Attune Cementless fixed-bearing tibial Component, Size 5 3. Depuy Attune 5x6mm CR/FB Poly 4. Depuy Attune Patellar Component, Size 35 Indications: I have seen Korin in clinic for symptoms of knee arthritis, confirmed with radiographic findings. She has exhausted nonoperative methods and was having significant limitations in daily function and desired better function and less pain. I discussed the technical details of a knee replacement. I explained the risks of the procedure to include, but not limited to, bleeding, infection, pain, stiffness, fracture, damage to nerves and vessels, damage to muscles and tendons, loosening, need for repeat procedure, blood clot and cardiopulmonary demise. Despite these risks, Korin elected to proceed. Findings: There is some notable arthritic change mostly of the medial compartment. However, there is also seen some arthritic wear around the lateral femur and within the patellofemoral joint. Procedure Description: Korin was greeted in the preoperative holding area where the correct side was identified and marked. The consent was reviewed with the patient and signed. The history and physical was updated. All questions were answered. Preoperative medications were administered: Acetaminophen 1000mg, Celebrex 400mg, and Gabapentin 300mg. An adductor canal block was then administered by the anesthesia team in the PACU. Korin was taken back to the operating room. A spinal anesthestic was then administered. The patient was placed into the supine position on the operating room table. A nonsterile tourniquet was placed high onto the leg but only used for cementing. Posts were placed for positioning during the procedure. All bony prominences were well padded. Prophylactic antibiotics in the form of Cefazolin were administered. 1g of Tranxemic Acid was given intravenously within 30 minutes of incision. The left leg was then prepped with Chloraprep and draped in a standard fashion with impervious stockinette. A second prep with Chloraprep was performed prior to application of Iodine impregnated skin protection. A timeout to confirm correct identity, side and site, procedure, allergies, anesthesia, and medical concerns was performed. With the knee in some flexion, a midline incision was made overlying the knee. Full thickness skin flaps were raised once the extensor mechanism was encountered. These were raised medially and laterally. Any bleeding was controlled with electrocautery. Once the extensor mechanism was fully exposed, a medial parapatellar arthrotomy was performed in a flexed position. All bleeding from the arthrotomy and the geniculate arteries was coagulated. A medial subperiosteal peel was performed with electrocautery to the midcoronal plane. Due to the significant varus deformity the entire medial tibial plateau was exposed. The fat pad was removed while keeping the patellar tendon protected. The anterior distal femur synovium was removed for later visualization. The ACL and PCL were resected and the anterior horn of the lateral meniscus was transected. The knee was then flexed with the patella everted. Large osteophytes from the tibia were removed. Large osteophytes from the femur were removed. Using a step drill, and based on preoperative templating, the femoral canal was entered. This was done with a step drill without any difficulty. The intramedullary distal femoral cut guide was inserted, set to a 4 degree valgus cut and 9mm cut thickness. The distal femoral cut guide was then held in position and pinned. With the soft tissues protected, the distal cut was performed. This was passed over a few times to ensure a planar cut. I then turned attention to the tibia. The extramedullary guide was placed onto the leg. The distal aspect was slid medial to adjust for position of center of ankle and stay in line with shaft of the tibia. Approximately 3-5 degrees of posterior slope was kept in the proximal cutting guide. The center of the guide was aligned with the PCL. The stylus was used to assess cut thickness. The medial side, most involved side, was set for a 4mm cut. This was then held in position and pinned into place with 2 additional pins and a cross pin for stability. The medial and lateral collateral ligaments were protected and the cut was performed. With this completed, it was assessed and noted to be of appropriate dimensions. The guide was removed. A spacer block was inserted and the knee was brought into extension. Unfortunately, this did not fully create a balance gap. I had already released the periphery of the medial tibial plateau. Therefore, I went back to recut the tibia with slightly more varus. The tibial jig was placed in a slight more bit of varus was added to the jig centralized on the previously placed sliding hole pin. This was then pinned in position and the tibia was recut. The 5mm spacer block provided full extension, without hyperextension and with stability of both the medial and lateral collateral ligaments was assessed. The pins from the femur and the tibia were then removed. The distal femur was then sized. The anterior stylus was placed onto the lateral ridge of the anterior femur. This indicated a size 5 femur. The external rotation of the guide was adjusted to 3 degrees to match the epicondylar axis, perpendicular to Lynn?s line. The 4-in-1 cutting guide was the placed. The posterior medial femur cut was evaluated and appeared of good thickness. The spacer block was inserted underneath the cutting guide and stability was confirmed in 90 degrees of flexion. An andre wing was used to confirm appropriate position of the anterior cut to avoid notching. This cutting guide was ensured to be flush on the cut surface and then pinned into place with headed pins. While protecting the soft tissues, quad tendon, and collateral ligaments, the anterior and posterior cuts were performed with a saw. The central two pins were removed and the posterior and anterior chamfers were cut next. The notch-cutting guide was placed. This was pinned to lateralize the femoral component as much as possible while keeping it flush on the cut surface. This was then pinned into position. A saw was used to make the notch cut. A rasp smoothed the cut surfaces. The medial and lateral menisci were removed. Posterior capsular tissues were released and posterior osteophytes were removed with an osteotome. A trial femoral component was then inserted, impacted down to the cut surfaces, and the lug holes were drilled. A provisional trial tibial component was placed and the knee was brought through range of motion. The polyethylene was trialed until there was good flexion and extension with excellent stability to the medial and lateral collaterals. The patella was tracking without thumbs. A size 6mm polyethylene component provided the best range of motion and stability with less than 2mm gapping with medial and lateral stress and full extension without significant hyperextension. The tibial cut surface was fully exposed. The tibia was then sized as a 5. The tibia had been previously marked during trialing to correspond to the center of the tibial component to help with rotation. The trial was aligned to this violet, approximately rotated to the medial 1/3rd of the tibial tubercle. The trial was pinned into place. The tibia was prepared with a reamer and a keel punch and lug holes. The knee was then brought into extension and the patella was measured as 25mm. Using the patellar clamp and cut guide, this was resected to a flat surface with at least 13mm of thickness remaining. The size 35 patella fit the best. This was oriented and then clamped into position. The lugs were drilled. The trial components were removed. The final components were opened on the back table. The periosteal and capsular tissues, especially posteriorly, around the knee were then systematically injected with a periarticular cocktail consisting of 246mg of Ropivacaine, 0.5mg of Epinephrine, 0.08mg of Clonidine, and 30mg of Ketorolac, diluted to 100cc. On the back table, with the implants opened, the cement was mixed. One batch of high viscosity cement was prepared with vacuum assistance. After the cement was ready a small amount was placed on the cut surface of the patella and the patellar button was clamped into position and held. While the cement was hardening, the cementless knee components were placed. Starting with the tibial component, the tibia was subluxed anteriorly and the lug holes of the component were lined up. The tibia was then impacted with an impactor and mallet until the tibial component was in contact with the tibia. The final polyethylene component was inserted. Then, the femoral component was inserted. The lug holes were aligned and the component was impacted into position. The knee was irrigated with Irrisept chlorhexidine solution. This was allowed to sit in the knee for 3 minutes and then it was irrigated out with saline. After the cement had finally cured, approximately 15min, the clamp was removed from the patella and the knee was taken through range of motion. The patella was tracking with a no-thumbs technique. The capsule was then reapproximated with a No. 1 Vicryl at multiple locations. The capsule was finally closed with a No. 2 Stratafix, barbed suture. The second dosing of 1g TXA was started. Deep tissues were then reapproximated with 0 Vicryl and 2-0 Vicryl. The skin was closed with a running 3-0 Monocryl in a subcuticular fashion. This was reinforced with skin glue. A Mepilex silver dressing was applied along with a [id number] EMMANUELLE wrap. A CryoCuff was applied. Korin was transferred to the hospital bed without difficulty an suffering no apparent complication. Korin has a good prognosis. Physical therapy will start today and without restrictions, weight-bearing as tolerated. Aspirin 81mg BID will be used for DVT prophylaxis.
== END 2022-05-10 14:57 | disposition home or self-care (01) ==
PROVIDERS: PCP Family Medicine; Visit Provider Student in an Organized Health Care Education/Training Program
PROC: (CPT 27447; principal; 2022-05-10 10:30)
DX: M17.12 Unilateral primary osteoarthritis, left knee (principal)
CPT/HCPCS: 27447; 76942; 97162; J0690; J1100; J2250; J2405; J2704; J3010

== ENCOUNTER 2022-05-26 09:46 | Outpatient (CLI) | payer BC, SELFPAY ==
--- NOTE | 2022-05-26 09:00 | DI.RAD_ITS ---
Exam(s) XR STANDING ALIGNMENT EXAM: XR STANDING ALIGNMENT CLINICAL HISTORY: 1ST POST OP L TKA. TECHNIQUE: 2D digital imaging was performed. COMPARISON: Prior x-rays 04/28/2022 FINDINGS: There has been interval placement of a left knee prosthesis. The bilateral knee prostheses appears s atisfactory. No obvious fractures or loosening. Hips appear unremarkable. Ankles unremarkable on the left side and some talar tilting on the right s sujey. No osteochondral defect nor degenerative cysts noted in the talar dome on either IMPRESSION: Satisfactory appearance of the bilateral knee prostheses. The findings as above DATA REPOSITORY: RADIATION DOSE DELIVERED:
--- NOTE | 2022-05-26 09:03 | DI.RAD_ITS ---
Exam(s) XR KNEE LT 1V EXAM: XR KNEE LT 1V CLINICAL HISTORY: 1st post op L TKA. TECHNIQUE: 2D digital imaging was performed. COMPARISON: Prior 04/28/2022 FINDINGS: Single lateral view: On this single view the position alignment of the prosthesis components is satisfactory. Fracture or loosening evident on this single view. IMPRESSION: DATA REPOSITORY: RADIATION DOSE DELIVERED:
== END 2022-05-26 09:47 | disposition home or self-care (01) ==
LOC: DIORS 09:47
PROVIDERS: PCP Family Medicine; Referring Provider Family Medicine; Visit Provider Physician Assistant
DX: Z96.652 Presence of left artificial knee joint (principal); Z47.1 Aftercare following joint replacement surgery; Z96.651 Presence of right artificial knee joint
CPT/HCPCS: 73560; 77073

== ENCOUNTER 2022-12-11 15:50 | Outpatient (REF) | payer OTHER, SELFPAY ==
[2022-12-11 17:28] LABS: Clarity Cloudy; Mononuclear Cells 87 %; Nucleated Cells 536 uL (0); Polynuclear Cells 13 %; Source Synovial
== END 2022-12-11 15:51 | disposition home or self-care (01) ==
LOC: LBN 15:50
PROVIDERS: PCP Family Medicine; Visit Provider Student in an Organized Health Care Education/Training Program
DX: Z96.652 Presence of left artificial knee joint (principal)
CPT/HCPCS: 87070; 87205; 89051